=== PATIENT | male | born 1950 | race Caucasian/White ===

== ENCOUNTER 2017-07-14 19:49 | Emergency (ER) | payer MEDICARE, MEDICAID ==
[2017-07-14] MEDS ORDERED: HYDROcodone/Acetaminophen 10/325 mg Tablet ONE (21:08)
--- NOTE | 2017-07-14 21:35 | RAD ---
LEFT HAND THREE VIEWS: 07/14/17 HISTORY: 67-year-old male with left hand pain following an injury. Soft tissue swelling is noted over the dorsal hand. There is a minimally displaced possibly very sli ghtly comminuted fracture through the distal fifth metacarpal. 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 IMPRESSION: Slight displacement with a slight comminuted fracture of the distal fifth metacarpal with very mild volar angulation. Generalized degenerative changes of the hand and wrist. POS: [facility]
== END 2017-07-14 21:13 | disposition home or self-care (01) ==
LOC: MADERS 19:49
DX: S62.397A Other fracture of fifth metacarpal bone, left hand, initial encounter for closed fracture (principal); I10 Essential (primary) hypertension; F32.9 Major depressive disorder, single episode, unspecified; F17.210 Nicotine dependence, cigarettes, uncomplicated; W17.89XA Other fall from one level to another, initial encounter
CPT/HCPCS: 29125

== ENCOUNTER 2017-10-14 14:27 | Outpatient (CLI) | payer MEDICARE, OTHER, MEDICAID | END 2017-10-14 14:28 | disposition home or self-care (01) | LOC: MADLAB 14:27 | PROVIDERS: ATTEND Family Medicine | DX: J03.00 Acute streptococcal tonsillitis, unspecified (principal) | CPT/HCPCS: 87081; 87430 ==